=== PATIENT | female | born 1980 | race Caucasian/White ===

== ENCOUNTER 2023-12-10 16:09 | Outpatient (OUT) | payer BC, SELFPAY ==
--- NOTE | 2023-12-10 | XR_ITS ---
The [address] [address] Patient Name: VIRGINIA PARKER MRN: [id number] date: 1980 Sex: F Assigned Patient Location: [facility] Current Patient Location: Accession/Order Number: [id number] Exam Date: 12/10/2023 16:55 Report Date: 12/11/2023 07:33 At the request of: NON-STAFF PHYSICIAN Procedure: XR thoracic spine 3V EXAMINATION: XR thoracic spine 3V HISTORY: localized swelling and mass R22.9, M54.6 COMPARISON: No relevant comparison available. FINDINGS: BONES: Mild widespread spondylosis and facet osteoarthritis. No visible acute bony abnormality. DISC SPACES: Normal. No significant disc height narrowing, subluxation, or endplate abnormality. PARASPINOUS: Negative. No paraspinous abnormality is seen. OTHER: No transient spondylolisthesis with flexion or extension. A BB marker indicates the L2 level. No corresponding abnormality XR/XR thoracic spine 3V IMPRESSION: No plain film abnormality to correspond to the patient's mass Electronically authenticated by: JAIR ELLIOTT Date: 12/11/2023 07:33
== END 2023-12-10 16:10 | disposition home or self-care (01) ==
LOC: RAD 16:16
PROVIDERS: PCP Family Medicine
DX: M54.6 Pain in thoracic spine (principal); R22.9 Localized swelling, mass and lump, unspecified
CPT/HCPCS: 72072

== ENCOUNTER 2024-01-03 12:28 | Outpatient (OUT) | payer BC, SELFPAY ==
--- NOTE | 2024-01-03 12:34 | MR_ITS ---
The [address] [address] Patient Name: VIRGINIA PARKER MRN: [id number] date: 1980 Sex: F Assigned Patient Location: MRI Current Patient Location: MRI Accession/Order Number: [id number] Exam Date: 01/03/2024 12:45 Report Date: 01/06/2024 13:46 At the request of: CHELSIE CLEARY Procedure: MR thoracic spine wo/w con EXAM: MR thoracic spine wo/w con HISTORY: Thoracic Pain Acute pain, superficial mass/swelling. COMPARISON: Thoracic spine x-rays 12/10/2023. TECHNIQUE: Multiplanar multisequence MRI of the thoracic spine was performed with and without IV contrast. This included sagittal T2, sagittal T1, sagittal STIR, axial T2, axial T1 postcontrast axial and sagittal T1 imaging. FINDINGS: Localizer images along the cervical spine demonstrate moderate central canal stenosis at C5-C6 secondary to disc osteophyte complex. No compression fractures seen. No malalignment. Mild endplate spur along the dorsal spine. Disc desiccation and minimal disc space narrowing at T6-T7, T7-T8 and T8-T9. No disc bulge or focal disc herniation along the thoracic segments. No significant central canal or neural foraminal stenosis identified. Facet joints appear preserved. There is regenerative red marrow with suggestion of an intraosseous hemangioma noted at T9 measuring 12 mm and at T7 measuring 7 mm. Thoracic spinal cord demonstrates normal size, signal and morphology. No abnormal spinal cord enhancement identified. There is enhancing lesion along the posterior right hepatic lobe measuring 1.5 cm which may correlate with a hemangioma. No paraspinal mass is identified. MR/MR thoracic spine wo/w con IMPRESSION: 1. No soft tissue mass along the posterior body wall to explain the history of swelling. 2. No compression fracture. 3. 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 4. Moderate central canal stenosis along the cervical spine at C5-C6. Electronically authenticated by: GUILLERMINA ALMENDAREZ Date: 01/06/2024 13:46
--- NOTE | 2024-01-03 12:35 | MM_ITS ---
Patient Name: VIRGINIA PARKER MR#: [id number] : 1980 Exam Date: 01/03/2024 Ordering Doctor: DR CHELSIE SINGH RADIOLOGY REPORT PROCEDURE: MM TOMOSYNTHESIS SCREENING BI COMPARISON: None. INDICATIONS: Screening Calculator Name NCI Breast Cancer Risk Assessment Tool 5 Year Breast Cancer Risk 0.40% Lifetime Breast Cancer Risk 5.00% Personal Breast Cancer No Personal Ovarian Cancer No Treatments None Family Cancers Father with colon cancer at age 55; Mother with thyroid cancer at age 53. LOCATION: The [facility] BREAST COMPOSITION: The breasts are heterogeneously dense,which may obscure small masses. FINDINGS: DIAGNOSTIC CATEGORY 1--NEGATIVE. RIGHT BREAST: No significant suspicious finding. LEFT BREAST: No significant suspicious finding. RECOMMENDATIONS: ROUTINE MAMMOGRAM AND CLINICAL EVALUATION IN 12 MONTHS. PLEASE NOTE: A NORMAL MAMMOGRAM DOES NOT EXCLUDE THE POSSIBILITY OF BREAST CANCER. A CLINICALLY SUSPICIOUS PALPABLE LUMP SHOULD BE BIOPSIED. Dictated by: Peter Sloan M.D. on 01/04/2024 at 10:54 Approved by: Peter Sloan M.D. on 01/04/2024 at 11:00
== END 2024-01-03 12:29 | disposition home or self-care (01) ==
LOC: MRI 12:29
PROVIDERS: PCP Family Medicine; Visit Provider Physician Assistant
DX: Z12.31 Encounter for screening mammogram for malignant neoplasm of breast (principal); R22.9 Localized swelling, mass and lump, unspecified; M54.6 Pain in thoracic spine; M51.34 Other intervertebral disc degeneration, thoracic region; Z80.0 Family history of malignant neoplasm of digestive organs; Z80.8 Family history of malignant neoplasm of other organs or systems
CPT/HCPCS: 72157; 77063; 77067; A9575